=== PATIENT | female | born 1950 | race Caucasian/White ===

== ENCOUNTER 2016-10-01 11:16 | Emergency (ER) | payer SELFPAY ==
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
[2016-10-01] MEDS ORDERED: Ibuprofen TAB* 600 MG ONE (14:16)
[2016-10-01] MEDS ORDERED: Ibuprofen TAB* 600 MG PO ONE (14:16)
[2016-10-01 14:29] VITALS: BP 120/52
== END 2016-10-01 14:28 | disposition home or self-care (01) ==
LOC: ED 11:16
DX: M25.511 Pain in right shoulder (principal); V43.62XA Car passenger injured in collision with other type car in traffic accident, initial encounter; Y92.413 State road as the place of occurrence of the external cause; Z88.5 Allergy status to narcotic agent; Z88.6 Allergy status to analgesic agent; K21.9 Gastro-esophageal reflux disease without esophagitis; M81.0 Age-related osteoporosis without current pathological fracture
CPT/HCPCS: 99282; A9270-GY

== ENCOUNTER 2020-06-05 08:05 | Inpatient (IN) ==
[2020-06-05 08:48] LABS: ABS Lymphocytes 0.3 10^3/ul (1.0-4.8); ABS Monocytes 0.4 10^3/ul (0-0.8); ABS Neutrophils 11.9 10^3/ul (1.5-7.7); Eosinophil % 0.1 %; Hematocrit 37 % (35-47); Hemoglobin 12.4 g/dL (12.0-16.0); Lymphocyte % 2.1 %; Mean Corpuscular HGB Conc 34 g/dL (31-36); Mean Corpuscular Hemoglobin 32 pg (27-31); Mean Corpuscular Volume 95 fL (80-97); Mean Platelet Volume 8.3 fL (7.4-10.4); Platelet Count 228 10^3/uL (150-450); Red Blood Count 3.83 10^6 /uL (3.70-4.87); Red Cell Distribution Width 13 % (10-15); White Blood Count 12.6 10^3/uL (3.5-10.8)
[2020-06-05 08:59] LABS: INR 1.47 (0.82-1.09)
[2020-06-05 09:00] LABS: Urine Appearance Cloudy; Urine Bilirubin Negative (Negative); Urine Blood Negative (Negative); Urine Color Yellow; Urine Glucose Negative (Negative); Urine Ketones 1+ (Negative); Urine Nitrite Negative (Negative); Urine Protein 1+(30 mg/dL) (Negative); Urine Specific Gravity 1.011 (1.010-1.030); Urine Urobilinogen Negative (Negative)
[2020-06-05 09:05] LABS: Albumin 3.8 g/dL (3.2-5.2); Albumin/Globulin Ratio 1.1 (1-3); Calcium 8.7 mg/dL (8.6-10.3); EGFR African American 62.3 (>60); EGFR Non-African American 51.5 (>60); Globulin 3.4 g/dL (2-4); Potassium 3.2 mmol/L (3.5-5.0); Total Bilirubin 0.4 mg/dL (0.2-1.0); Total Protein 7.2 g/dL (6.4-8.9)
[2020-06-05 09:10] LABS: Urine Bacteria Absent (Absent); Urine Red Blood Cell 1+(3-5/hpf) (Absent); Urine Squamous Epithelial Cell Present (Absent); Urine White Blood Cell 1+(6-10/hpf) (Absent)
[2020-06-05] MEDS ORDERED: NS 0.9% 1000 ml BAG 1,000 ML IV ONE (09:32)
[2020-06-05] MEDS ORDERED: Potassium Chlor 20 meq TAB.ER PO ONE (09:32)
[2020-06-05] MEDS ORDERED: Ondansetron ODT 4 mg TAB 4 MG TAB SL ONE (09:34)
[2020-06-05 15:28] LABS: Indirect Bilirubin 0.3 mg/dL (0.3-1.0)
[2020-06-05 15:44] LABS: TSH Ultra Thyroid Stim Horm 1.47 mcIU/mL (0.34-5.60)
[2020-06-05] MEDS: Heparin 5000 UNITS/ML 1 mL VIAL SUBCUT SCH (22:03)
[2020-06-05] MEDS: MINS AREDS2 PO SCH (22:40)
[2020-06-05] MEDS: MULTIVITAMINS PO SCH (22:40)
[2020-06-06 05:50] LABS: ABS Eosinophils 1.1 10^3/ul (0-0.6); ABS Lymphocytes 0.4 10^3/ul (1.0-4.8); ABS Monocytes 0.4 10^3/ul (0-0.8); ABS Neutrophils 3.3 10^3/ul (1.5-7.7); Eosinophil % 21.6 %; Hematocrit 30 % (35-47); Hemoglobin 10.5 g/dL (12.0-16.0); Lymphocyte % 7.9 %; Mean Corpuscular HGB Conc 35 g/dL (31-36); Mean Corpuscular Hemoglobin 33 pg (27-31); Mean Corpuscular Volume 94 fL (80-97); Mean Platelet Volume 8.7 fL (7.4-10.4); Platelet Count 187 10^3/uL (150-450); Red Blood Count 3.19 10^6 /uL (3.70-4.87); Red Cell Distribution Width 13 % (10-15); White Blood Count 5.3 10^3/uL (3.5-10.8)
[2020-06-06 05:57] LABS: INR 1.26 (0.82-1.09)
[2020-06-06 06:02] LABS: Albumin 3.1 g/dL (3.2-5.2); Albumin/Globulin Ratio 1.1 (1-3); BUN/Creatinine Ratio 31.3 (8-20); Calcium 8.1 mg/dL (8.6-10.3); EGFR African American 104.7 (>60); EGFR Non-African American 86.5 (>60); Globulin 2.8 g/dL (2-4); Potassium 3.8 mmol/L (3.5-5.0); Total Bilirubin 0.3 mg/dL (0.2-1.0); Total Protein 5.9 g/dL (6.4-8.9)
[2020-06-06] MEDS: Heparin 5000 UNITS/ML 1 mL VIAL SUBCUT SCH ×2 (08:49→20:32)
[2020-06-06] MEDS: MULTIVITAMINS PO SCH ×2 (08:50→20:32)
[2020-06-06] MEDS: MINS AREDS2 PO SCH ×2 (08:50→20:32)
[2020-06-06] MEDS ORDERED: ESTRADIOL 0.025 MG INTRADERM SCH (12:15)
[2020-06-07 09:31] LABS: ABS Lymphocytes 0.8 10^3/ul (1.0-4.8); ABS Monocytes 0.4 10^3/ul (0-0.8); Eosinophil % 24.4 %; Hematocrit 32 % (35-47); Hemoglobin 11.3 g/dL (12.0-16.0); Lymphocyte % 18.3 %; Mean Corpuscular HGB Conc 35 g/dL (31-36); Mean Corpuscular Hemoglobin 33 pg (27-31); Mean Corpuscular Volume 94 fL (80-97); Mean Platelet Volume 8.5 fL (7.4-10.4); Platelet Count 224 10^3/uL (150-450); Red Blood Count 3.44 10^6 /uL (3.70-4.87); Red Cell Distribution Width 13 % (10-15); White Blood Count 4.2 10^3/uL (3.5-10.8)
[2020-06-07] MEDS: Heparin 5000 UNITS/ML 1 mL VIAL SUBCUT SCH ×2 (10:49→19:38)
[2020-06-07] MEDS: PROGESTERONE 100 MG PO SCH (10:49)
[2020-06-07] MEDS: MULTIVITAMINS PO SCH ×2 (10:52→19:38)
[2020-06-07] MEDS: MINS AREDS2 PO SCH ×2 (10:52→19:38)
[2020-06-08] MEDS: PROGESTERONE 100 MG PO SCH (08:43)
[2020-06-08] MEDS: MULTIVITAMINS PO SCH ×2 (08:43→19:52)
[2020-06-08] MEDS: MINS AREDS2 PO SCH ×2 (08:43→19:52)
[2020-06-08] MEDS: Heparin 5000 UNITS/ML 1 mL VIAL SUBCUT SCH ×2 (08:43→19:52)
[2020-06-08 12:21] LABS: Urine Appearance Cloudy; Urine Bilirubin Negative (Negative); Urine Blood Negative (Negative); Urine Color Yellow; Urine Glucose Negative (Negative); Urine Ketones Negative (Negative); Urine Nitrite Negative (Negative); Urine Protein Negative (Negative); Urine Specific Gravity 1.014 (1.010-1.030); Urine Urobilinogen Negative (Negative)
[2020-06-08 12:25] LABS: Urine Bacteria 1+ (Absent); Urine Red Blood Cell 1+(3-5/hpf) (Absent); Urine Squamous Epithelial Cell Present (Absent); Urine White Blood Cell 3+(>20/hpf) (Absent)
[2020-06-09 06:23] LABS: ABS Basophils 0.1 10^3/ul (0-0.2); ABS Eosinophils 1.1 10^3/ul (0-0.6); ABS Lymphocytes 1.6 10^3/ul (1.0-4.8); ABS Monocytes 0.5 10^3/ul (0-0.8); Eosinophil % 17.5 %; Hematocrit 31 % (35-47); Hemoglobin 10.9 g/dL (12.0-16.0); Lymphocyte % 25.4 %; Mean Corpuscular HGB Conc 35 g/dL (31-36); Mean Corpuscular Hemoglobin 33 pg (27-31); Mean Corpuscular Volume 95 fL (80-97); Mean Platelet Volume 8.6 fL (7.4-10.4); Platelet Count 231 10^3/uL (150-450); Red Blood Count 3.31 10^6 /uL (3.70-4.87); Red Cell Distribution Width 13 % (10-15); White Blood Count 6.4 10^3/uL (3.5-10.8)
[2020-06-09 06:41] LABS: BUN/Creatinine Ratio 21.2 (8-20); Calcium 8.4 mg/dL (8.6-10.3); EGFR African American 140.3 (>60); EGFR Non-African American 115.9 (>60); Potassium 3.7 mmol/L (3.5-5.0)
[2020-06-09] MEDS: Heparin 5000 UNITS/ML 1 mL VIAL SUBCUT SCH ×2 (09:39→21:07)
[2020-06-09] MEDS: PROGESTERONE 100 MG PO SCH (09:40)
[2020-06-09] MEDS: MULTIVITAMINS PO SCH ×2 (09:40→21:07)
[2020-06-09] MEDS: MINS AREDS2 PO SCH ×2 (09:40→21:07)
[2020-06-09] MEDS ORDERED: cefTRIAXone 1 gm/50 mL NS BAG 1 GM/50 ML BAG IVPB SCH (17:00)
[2020-06-09 20:52] LABS: Anaplasma phagocytophilum Negative (Negative); B. miyamotoi PCR, B Negative (Negative); Babesia divergens/MO-1 Negative (Negative); Babesia ducani Negative (Negative); Ehrlichia chaffeensis Negative (Negative); Ehrlichia ewingii/canis Negative (Negative); Ehrlichia muris eauclairensis Negative (Negative)
[2020-06-10] MEDS: PROGESTERONE 100 MG PO SCH (08:19)
[2020-06-10] MEDS: Heparin 5000 UNITS/ML 1 mL VIAL SUBCUT SCH (08:21)
[2020-06-10] MEDS: MULTIVITAMINS PO SCH (08:22)
[2020-06-10] MEDS: MINS AREDS2 PO SCH (08:22)
[2020-06-10 15:36] VITALS: BP 138/64
== END 2020-06-10 13:10 | DRG 562 ==
LOC: MEDTELE 08:05 → ED 08:05 → MEDTELE 16:11
PROVIDERS: ADMIT Student in an Organized Health Care Education/Training Program; ATTEND Internal Medicine